=== PATIENT | male | born 1995 ===

== ENCOUNTER 2023-04-07 14:25 | Outpatient (AMB) | payer OTHER, SELFPAY ==
--- NOTE | 2023-04-07 14:33 | AM.OFFWIN_ITS ---
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 Patient Tobacco Use Status: Never used Tobacco Allergies No Known Allergies Allergy (Verified 04/07/23 14:36) Do you need a note to return to daycare/school/sports/work: No HPI HPI Comments History of Present Illness Details 27-year-old male presents for knee pain. Patient states that he was playing basketball Tuesday he planted his foot to make got twisted his upper body but does like stage straight. He felt a click or pop. He has been able to ambulate on it in versus a mild swelling [facility] Social History Patient Tobacco Use Status: Never used Tobacco Review of Systems Const All systems reviewed & are unremarkable except as noted in HPI and below Reports as per HPI Musc Details: Left knee swelling Physical Exam Vital Signs: Last Vital Signs Pulse 74 04/07/23 14:37 BP 118/76 04/07/23 14:37 Pulse Ox 97 04/07/23 14:37 Oxygen Delivery Method Room Air 04/07/23 14:37 Const General: cooperative, healthy appearing, no acute distress and alert Assessment & Plan Assessment & Plan (1) Knee pain: Code(s): M25.569 - Pain in unspecified knee Plan On exam patient presents alert and oriented no acute distress. Exam notable for mild swelling over the anterior surface of the knee. No laxity with anterior posterior draw. No laxity with varus or valgus stress. Patient likely tello ffering from sprain recommend symptomatic treatment Discharge instructions, follow up and treatment are discussed with patient in my usual fashion. Alternatives in treatment are also discussed. The patient will return for worsening symptoms or as needed. Advised that any labs/imaging ordered will be followed up on and contact made if further treatment needed. Counseled that patient's condition may require further evaluation and/or treatment. Symptoms of concern for worsening disorder discussed in detail in my customary manner. Patient does verbalize understanding of the plan, there are no apparent barriers to communication. The patient is given the opportunity to ask questions and have them answered to his/her satisfaction Coding Level of Care Code Est Pt Level 2 (64495) Diagnoses Knee pain M25.569
[2023-04-07 14:37] VITALS: BP 118/76; PULSE 74; O2SAT 97
== END 2023-04-07 14:44 | disposition home or self-care (01) ==
PROVIDERS: Visit Provider Physician Assistant
DX: M25.569 Pain in unspecified knee (principal)
CPT/HCPCS: 99212